=== PATIENT | male | born 1990 | race Caucasian/White ===

== ENCOUNTER 2023-12-11 12:09 | Emergency (ER) | payer BC ==
[2023-12-11] MEDS ORDERED: Ketorolac Tromethamine 30 MG (1 mL) VIAL ONE (12:52)
[2023-12-11] MEDS ORDERED: Lidocaine 4% Patch ONE (12:52)
[2023-12-11] MEDS ORDERED: Acetaminophen 325 MG TAB ONE (12:52)
[2023-12-11 13:07] LABS: Troponin I Less than 0.010 ng/mL (< 0.028)
== END 2023-12-11 13:30 | disposition home or self-care (01) ==
LOC: MADERS 12:09
DX: S20.212A Contusion of left front wall of thorax, initial encounter (principal); I10 Essential (primary) hypertension; Z79.899 Other long term (current) drug therapy; Y04.0XXA Assault by unarmed brawl or fight, initial encounter
CPT/HCPCS: 36415; 71046; 84484; 93005; 96372; J1885

== ENCOUNTER 2024-07-14 16:57 | Emergency (ER) | payer BC, SELFPAY ==
[2024-07-14] MEDS ORDERED: Ketorolac Tromethamine 60 MG/2 ML VIAL ONE (17:12)
[2024-07-14] MEDS ORDERED: HYDROcodone/Acetaminophen 5/325 mg Tablet ONE (17:12)
== END 2024-07-14 18:40 | disposition home or self-care (01) ==
LOC: MADERS 16:57
DX: S22.049A Unspecified fracture of fourth thoracic vertebra, initial encounter for closed fracture (principal); S22.059A Unspecified fracture of T5-T6 vertebra, initial encounter for closed fracture; S22.069A Unspecified fracture of T7-T8 vertebra, initial encounter for closed fracture; E11.9 Type 2 diabetes mellitus without complications; I10 Essential (primary) hypertension; Z79.85 Long-term (current) use of injectable non-insulin antidiabetic drugs; Z79.899 Other long term (current) drug therapy; W51.XXXA Accidental striking against or bumped into by another person, initial encounter; Y93.89 Activity, other specified
CPT/HCPCS: 72128; 96372; J1885